=== PATIENT | female | born 1955 | race Caucasian/White ===

== ENCOUNTER 2024-10-29 15:39 | Inpatient (IN) | payer OTHER ==
[~2024-10-29] VITALS: Ht 162.6 cm; Wt 84.4 kg
[2024-10-29 00:39] VITALS: BP 117/73; TEMP 98.1; O2SAT 92
[2024-10-29 16:48] LABS: ABG BASE EXCESS 11.2 mmol/L (-2.0-3.0); ABG OXYGEN SATURATION 93.0 % (94.0-98.0); ABG PCO2 50.1 mmHg (32.0-45.0); ABG PH 7.477 (7.350-7.450); ABG PO2 73.6 mmHg (83.0-108.0); ABG TOTAL HEMOGLOBIN 10.8 G/dL (12.0-16.0); FLOW, BLOOD GAS 1.00 L/min (0.00-30.00); FRACTIONATED INSPIRED OXYGEN 24.0 %; SITE, ABG RIGHT RADIAL
[2024-10-29 17:08] LABS: PLATELET COUNT (AUTO) 471 K/uL (150-450); RED BLOOD CELL COUNT(AUTO) 3.60 MIL/uL (4.0-5.2); RED CELL DISTRIBUTION WIDTH 16.4 % (11.5-15.0); WHITE BLOOD COUNT (AUTO) 11.1 K/uL (4.3-11.0)
[2024-10-29 17:19] LABS: CALCIUM, SERUM 9.2 mg/dL (8.5-10.1); CREATININE 0.6 mg/dL (0.6-1.3); SODIUM SERUM 130 mmol/L (136-145); UREA NITROGEN, BLOOD 7 mg/dL (7-18)
[2024-10-29 17:21] LABS: INR 1.06 (0.91-1.10)
[2024-10-29 17:24] LABS: ALCOHOL, BLOOD < 3 mg/dL (0-10); ASPARTATE AMINOTRANSFERASE 15 U/L (15-37); TOTAL PROTEIN, SERUM 6.8 g/dL (6.4-8.2)
[2024-10-29 17:29] LABS: SERUM AMMONIA < 10 umol/L (11-32)
[2024-10-29 17:49] LABS: APPEARANCE,URINE CLEAR (CLEAR); BLOOD, URINE Trace-intact Ery/uL (NEGATIVE); LEUKOCYTE ESTERASE ,URINE Negative (NEGATIVE); UGLUCOSE Negative (NEGATIVE)
[2024-10-29 17:53] LABS: NITRITE, URINE NEGATIVE (NEGATIVE)
[2024-10-29 17:54] LABS: ADD URINE CULTURE NO; SQUAMOUS EPITHELIAL CELL,UR Few /HPF (None Seen)
[2024-10-29 17:57] LABS: AMPHETAMINE, URINE NEGATIVE (NEGATIVE); BARBITURATE, URINE NEGATIVE (NEGATIVE); BENZODIAZEPINE, URINE NEGATIVE (NEGATIVE); CANNABINOID, URINE NEGATIVE (NEGATIVE); COCCAINE, URINE NEGATIVE (NEGATIVE)
[2024-10-29 17:59] LABS: OPIATE, URINE POSITIVE (NEGATIVE)
[2024-10-29] MEDS ORDERED: MAG HYDROX/AL HYDROX/SIMETH 30 ML UDC PO PRN (21:00)
[2024-10-29] MEDS ORDERED: ONDANSETRON HCL/PF 4 MG/2 ML VIAL IVP PRN (21:00)
[2024-10-29] MEDS ORDERED: ACETAMINOPHEN 325 MG TABLET PO PRN (21:00)
[2024-10-29] MEDS: ENOXAPARIN SODIUM 40 MG/0.4 ML DISP.SYRIN SQ SCH (21:00)
[2024-10-29] MEDS ORDERED: MAGNESIUM HYDROXIDE 30 ML UDC PO PRN (21:00)
[2024-10-29 21:30] VITALS: BP 117/73; TEMP 98.1; O2SAT 91
[2024-10-29] MEDS: IV NS 0.9% 1,000 ML IV PRN (22:02)
[2024-10-30] VITALS: BP 153/75; TEMP 97.7; O2SAT 95
[2024-10-30 04:00] VITALS: BP 149/61; TEMP 97.7; O2SAT 90
[2024-10-30 06:37] LABS: PLATELET COUNT (AUTO) 455 K/uL (150-450); RED BLOOD CELL COUNT(AUTO) 3.78 MIL/uL (4.0-5.2); RED CELL DISTRIBUTION WIDTH 17.0 % (11.5-15.0); WHITE BLOOD COUNT (AUTO) 10.7 K/uL (4.3-11.0)
[2024-10-30 07:08] LABS: CALCIUM, SERUM 9.3 mg/dL (8.5-10.1); CREATININE 0.6 mg/dL (0.6-1.3); PHOSPHORUS 3.9 mg/dL (2.5-4.9); SODIUM SERUM 134.0 mmol/L (136-145); UREA NITROGEN, BLOOD 7.0 mg/dL (7-18)
[2024-10-30] MEDS: ZOSYN IVPB 3.375 G in IV D5W 50ml IV ONE (09:52)
[2024-10-30] MEDS: PANTOPRAZOLE 40 MG VIAL IV SCH (09:53)
[2024-10-30] MEDS ORDERED: LACT10SO29 PO (09:54)
[2024-10-30] MEDS ORDERED: IPRA3AMP23 IH (09:54)
[2024-10-30] MEDS ORDERED: APIX5TAB PO (09:54)
[2024-10-30] MEDS ORDERED: ALBU6.7H9 IH (09:54)
[2024-10-30] MEDS ORDERED: SACC250C9 PO (09:54)
[2024-10-30] MEDS ORDERED: FLUT1BLS16 IH (09:54)
[2024-10-30] MEDS ORDERED: HYDR-3976 PO (09:54)
[2024-10-30] MEDS ORDERED: GUAI100S9 PO (09:54)
[2024-10-30] MEDS ORDERED: ALPR0.5T8 PO (09:54)
[2024-10-30] MEDS ORDERED: HYDR-4303 PO (09:54)
[2024-10-30] MEDS ORDERED: OMEG-153 PO (09:54)
[2024-10-30] MEDS ORDERED: DILT30TA2 PO (09:54)
[2024-10-30] MEDS ORDERED: ACET325T53 PO (09:54)
[2024-10-30] MEDS ORDERED: CHOL500062 PO (09:54)
[2024-10-30] MEDS ORDERED: DOCU100C36 PO (09:54)
[2024-10-30] MEDS ORDERED: NYST5ORA PO (09:54)
[2024-10-30] MEDS ORDERED: UMEC62.5 IH (09:54)
[2024-10-30] MEDS ORDERED: OMEP20CA15 PO (09:54)
[2024-10-30] MEDS ORDERED: CALC-1276 PO (09:54)
[2024-10-30] MEDS ORDERED: CYAN500T54 PO (09:54)
[2024-10-30] MEDS ORDERED: FURO20TA4 PO (09:54)
[2024-10-30] MEDS ORDERED: VITS42.53 TP (09:54)
[2024-10-30] MEDS ORDERED: PIPERACILLIN /TAZOBACTAM 4.5 G in IV D5W 50 ML IV SCH (12:00)
[2024-10-30] MEDS: MAGNESIUM OXIDE 400 MG TABLET PO ONE (12:52)
[2024-10-30] MEDS: PIPERACILLIN /TAZOBACTAM 3.375 G in IV D5W 100 ML IV SCH (17:30)
== END 2024-10-30 19:40 | disposition short-term general hospital (02) | DRG 92 ==
LOC: ER 15:45 → TELE 20:19
PROVIDERS: ADMIT Nurse Practitioner Family; ATTEND Internal Medicine
DX: G92.8 Other toxic encephalopathy (principal); E44.1 Mild protein-calorie malnutrition; K94.01 Colostomy hemorrhage; E87.1 Hypo-osmolality and hyponatremia; E87.3 Alkalosis; Y83.8 Other surgical procedures as the cause of abnormal reaction of the patient, or of later complication, without mention of misadventure at the time of the procedure; Y81.8 Miscellaneous general- and plastic-surgery devices associated with adverse incidents, not elsewhere classified; E66.9 Obesity, unspecified; E88.09 Other disorders of plasma-protein metabolism, not elsewhere classified; D63.8 Anemia in other chronic diseases classified elsewhere; E78.5 Hyperlipidemia, unspecified; E83.42 Hypomagnesemia; I25.10 Atherosclerotic heart disease of native coronary artery without angina pectoris; D72.829 Elevated white blood cell count, unspecified; J44.9 Chronic obstructive pulmonary disease, unspecified; I10 Essential (primary) hypertension; F41.9 Anxiety disorder, unspecified; F32.A Depression, unspecified; Z68.31 Body mass index [BMI] 31.0-31.9, adult; R91.1 Solitary pulmonary nodule; K44.9 Diaphragmatic hernia without obstruction or gangrene; N73.9 Female pelvic inflammatory disease, unspecified; J43.9 Emphysema, unspecified; Y92.129 Unspecified place in nursing home as the place of occurrence of the external cause; Z86.19 Personal history of other infectious and parasitic diseases
CPT/HCPCS: 36415; 36600; 70450-TC; 71045-TC; 71250-TC; 80048-TC; 80076-TC; 81001; 82140-TC; 82803-TC; 82962-TC; 83735-TC; 84100-TC; 84443-TC; 84484-TC; 85025-TC; 85730-TC; 87081-TC; 92526; 92611-TC; A4223; A6253; G0378; G0480; J2470; J2543; J7030; J7060